=== PATIENT | male | born 1995 | race Asian ===

== ENCOUNTER 2018-06-06 13:48 | Emergency (ER) | payer MEDICAID ==
[~2018-06-06] VITALS: Ht 172.7 cm; Wt 59.6 kg
[2018-06-06] MEDS ORDERED: PROPARACAINE OPHTH 0.5%, 15ML EACHEYE ONE (14:00)
[2018-06-06] MEDS ORDERED: FLUORESCEIN/BENOXINATE 5 ML DROPS OP ONE (14:00)
--- NOTE | 2018-06-06 14:03 | NUR ---
FIRST CONTACT WITH PT. PT STATES 'I THINK I HAVE PINK EYE' BILATERAL X 2 DAYS, EYE DISCHARGE, +CONTACTS. PT'S AOX4. RESPS EVEN AND UNLABORED. PA AT BEDSIDE TO EXPLAIN POC.
--- NOTE | 2018-06-06 14:24 | NUR ---
PT GIVEN DC INSTRUCTIONS AND SCRIPT. PT'S AOX4. RESPS EVEN AND UNLABORED. PT AMB TO DC WITH STEADY GAIT. NO ACUTE DISTRESS AT DC.
== END 2018-06-06 14:37 | disposition home or self-care (01) ==
LOC: ED 14:21
DX: H10.33 Unspecified acute conjunctivitis, bilateral (principal); F17.200 Nicotine dependence, unspecified, uncomplicated
CPT/HCPCS: 99283

== ENCOUNTER 2018-06-13 10:26 | Emergency (ER) | payer MEDICAID ==
[~2018-06-13] VITALS: Ht 172.7 cm; Wt 60.0 kg
[2018-06-13 10:36] VITALS: BP 135/77
[2018-06-13] MEDS ORDERED: DEXAMETHASONE 4 MG/ML, 1ML ONE (11:29)
[2018-06-13] MEDS ORDERED: DEXAMETHASONE 4 MG TABLET PO ONE (11:30)
== END 2018-06-13 12:51 | disposition home or self-care (01) ==
LOC: ED 12:06
DX: J01.90 Acute sinusitis, unspecified (principal)
CPT/HCPCS: 87081; 87147; 87880; 99283